=== PATIENT | female | born 1995 | race Two or more races ===

== ENCOUNTER 2021-01-26 06:24 | Inpatient (IN) | payer OTHER ==
[~2021-01-26] VITALS: Ht 154.9 cm; Wt 69.9 kg
[2021-01-26] MEDS ORDERED: PRENATAL CAPLE1 EAC1 PO (12:57)
== END 2021-01-28 13:35 | disposition home or self-care (01) | DRG 807 ==
LOC: LDR 06:24 → OB/GYN 14:51
PROVIDERS: ADMIT Specialist; ATTEND Specialist
PROC: 10E0XZZ Delivery of Products of Conception, External Approach (ICD-10-PCS; principal; 2021-01-26)
PROC: 0UQG7ZZ Repair Vagina, Via Natural or Artificial Opening (ICD-10-PCS; 2021-01-26)
PROC: 10907ZC Drainage of Amniotic Fluid, Therapeutic from Products of Conception, Via Natural or Artificial Opening (ICD-10-PCS; 2021-01-26)
PROC: 3E033VJ Introduction of Other Hormone into Peripheral Vein, Percutaneous Approach (ICD-10-PCS; 2021-01-26)
PROC: 4A1HXFZ Monitoring of Products of Conception, Cardiac Rhythm, External Approach (ICD-10-PCS; 2021-01-26)
DX: O99.824 Streptococcus B carrier state complicating childbirth (principal); O71.4 Obstetric high vaginal laceration alone; Z37.0 Single live birth; Z3A.39 39 weeks gestation of pregnancy; Z20.822 Contact with and (suspected) exposure to COVID-19